=== PATIENT | male | born 1975 | race Two or more races ===

== ENCOUNTER 2017-01-31 03:10 | Emergency (ER) | payer MEDICAID ==
[~2017-01-31] VITALS: Ht 170.2 cm; Wt 65.8 kg
[~2017-01-31 03:10] MED LIST: DIPHENHYDRAMINE25 M1 ORAL; PREDNISONE20 MG ORAL; ZANTAC150 MG ORAL
[2017-01-31] MEDS ORDERED: Solu-MEDROL 125mg Inj IM ONE (03:30)
[2017-01-31] MEDS ORDERED: BENADRYL25 MG ORAL (04:14)
[2017-01-31] MEDS ORDERED: PREDNISONE20 MG ORAL (04:14)
[2017-01-31] MEDS ORDERED: RANITIDINE HCL150 MG ORAL (04:14)
[2017-01-31 04:32] VITALS: BP 127/76
--- NOTE | 2017-02-02 07:35 | Emergency Room Report ---
History of Present Illness General Chief Complaint: Allergic Reaction Source: Patient Present Illness HPI Patient present with complaints of possible reaction to oysters He had was his earlier in the day Patient has no feeling itching and rash to the upper extremity and chest area Denies any shortness of breath Denies any chest pain Denies any vomiting or diarrhea Allergies: Uncoded Allergies: OYSTERS (Allergy, Unknown, 12/20/15) Patient History Past Medical History: see triage record Pertinent Family History: none Reviewed Nursing Documentation: PMH: Agreed, PSxH: Agreed Nursing Documentation-PMH Past Medical History: No Stated History Review of Systems All Other Systems: negative except mentioned in HPI Physical Exam Vital Signs Date Time Temp Pulse Resp B/P (MAP) Pulse Ox O2 Delivery O2 Flow Rate FiO2 01/31/17 03:17 97.5 58 18 127/76 98 Room Air Sp02 EP Interpretation: reviewed, normal General Appearance: well appearing, no apparent distress Head: normocephalic, atraumatic Eyes: bilateral eye PERRL, bilateral eye EOMI ENT: hearing grossly normal, normal pharynx, TMs + canals normal, uvula midline Neck: full range of motion, supple, no meningismus, no bony tend Respiratory: lungs clear, normal breath sounds, no rhonchi, no respiratory distress, no retraction, no accessory muscle use Cardiovascular #1: normal peripheral pulses, regular rate, rhythm, no edema, no gallop, no JVD, no murmur Gastrointestinal: normal bowel sounds, non tender, soft, no mass, no organomegaly, non-distended, no guarding, no hernia, no pulsatile mass, no rebound Genitourinary: no CVA tenderness Musculoskeletal: normal inspection Neurologic: oriented x3, responsive, filler mixer III-XII nml as tested, motor strength/ tone normal, sensory intact Psychiatric: mood/affect normal Skin: other - Mild erythematous rash in the upper extremities some in the upper chest no obvious petechiae, Lymphatic: normal inspection, no adenopathy Medical Decision Making Diagnostic Impression: Primary Impression: Allergic reaction ER Course Patient had taken 50 mg of Benadryl already therefore was provided with steroids and Zantac observed and has done significantly better No signs of any upper airway pathology patient was stable for close followup Last Vital Signs Date Time Temp Pulse Resp B/P (MAP) Pulse Ox O2 Delivery O2 Flow Rate FiO2 01/31/17 04:32 97.5 65 18 127/76 98 Room Air Status: improved Disposition: HOME, SELF-CARE Condition: Improved Scripts Ranitidine Hcl* (ZANTAC*) 150 Mg Tablet 150 MG ORAL TWICE A DAY, #30 TAB Prov: PAVEL SILVA D.O. 01/31/17 Prednisone* (PREDNISONE*) 20 Mg Tablet 20 MG ORAL BID, #8 TAB Prov: PAVEL SILVA D.O. 01/31/17 Diphenhydramine Hcl* (BENADRYL*) 25 Mg Capsule 25 MG ORAL Q6H Y for Itching for 7 Days, CAP Prov: PAVEL SILVA D.O. 01/31/17 Referrals: [facility]ERR[facility] (PCP) Patient Instructions: Food Allergy, [id number] Additional Instructions: Patient is provided with the discharge instructions notified to follow up with primary doctor in the next 2-3 days otherwise return to the er with any worsening symptoms. Please note that this report is being documented using [employer] technology. This can lead to erroneous entry secondary to incorrect interpretation by the dictating instrument. PAVEL SILVA D.O. Feb 02, 2017 07:35
== END 2017-01-31 04:33 | disposition home or self-care (01) ==
LOC: EMR 03:36
DX: T78.40XA Allergy, unspecified, initial encounter (principal); X58.XXXA Exposure to other specified factors, initial encounter; Z91.013 Allergy to seafood
CPT/HCPCS: 96372; 99283; J2930

== ENCOUNTER 2017-07-05 06:04 | Emergency (ER) | payer MEDICAID ==
[~2017-07-05] VITALS: Ht 162.6 cm; Wt 54.4 kg
[~2017-07-05 06:04] MED LIST changes: +BENADRYL25 MG ORAL; +RANITIDINE HCL150 MG ORAL
[2017-07-05 06:15] VITALS: BP 122/81
[2017-07-05] MEDS ORDERED: PREDNISONE20 MG ORAL (06:24)
[2017-07-05] MEDS ORDERED: ALBUTEROL SULF8.5 GM INH (06:24)
[2017-07-05 06:25] VITALS: BP 120/82
--- NOTE | 2017-07-05 06:25 | Emergency Room Report ---
History of Present Illness General Chief Complaint: Upper Respiratory Illness Source: Patient Present Illness HPI This is a 41-year-old male with no significant past medical history. He presents with chief complaint of a cough for the last 4 days. Also with some congestion and losing his voice. Worse when he lays flat. Worse when he wakes up in the morning. Allergies: Uncoded Allergies: OYSTERS (Allergy, Unknown, 12/20/15) Patient History Past Medical History: see triage record, old chart reviewed Past Surgical History: other Pertinent Family History: none Social History: Denies: smoking Immunizations: other Reviewed Nursing Documentation: PMH: Agreed, PSxH: Agreed Nursing Documentation-PMH Past Medical History: No Stated History Review of Systems Eye: Denies: eye pain, blurred vision ENT: Reports: nose congestion, Denies: ear pain, throat swelling Respiratory: Reports: cough, shortness of breath Cardiovascular: Denies: chest pain, palpitations Gastrointestinal: Denies: abdominal pain, diarrhea, nausea, vomiting Musculoskeletal: Denies: back pain, joint pain Skin: Denies: rash Neurological: Denies: headache, numbness Endocrine: Denies: increased thirst, increased urine Hematologic/Lymphatic: Denies: easy bruising All Other Systems: negative except mentioned in HPI Physical Exam Vital Signs Date Time Temp Pulse Resp B/P (MAP) Pulse Ox O2 Delivery O2 Flow Rate FiO2 07/05/17 06:11 99.0 88 18 120/80 98 Room Air 99.0 vitals normal Sp02 EP Interpretation: reviewed, normal General Appearance: well appearing, no apparent distress, alert Head: normocephalic, atraumatic Eyes: bilateral eye PERRL, bilateral eye EOMI ENT: hearing grossly normal, normal pharynx, uvula midline - uvula enlarged Neck: full range of motion, supple, no meningismus Respiratory: chest non-tender, lungs clear, normal breath sounds Cardiovascular #1: regular rate, rhythm, no murmur Gastrointestinal: normal bowel sounds, non tender, no mass, no organomegaly, no bruit, non-distended Musculoskeletal: back normal, gait/station normal, normal range of motion Neurologic: alert, oriented x3 Psychiatric: mood/affect normal Skin: warm/dry Medical Decision Making Diagnostic Impression: Primary Impression: Upper respiratory infection Qualified Codes: J06.9 - Acute upper respiratory infection, unspecified ER Course Patient presents with a viral illness. No evidence of pneumonia, sepsis, meningitis or other bacterial infection. Last Vital Signs Date Time Temp Pulse Resp B/P (MAP) Pulse Ox O2 Delivery O2 Flow Rate FiO2 07/05/17 06:15 98.9 87 17 122/81 99 Room Air 98.9 Status: unchanged Disposition: HOME, SELF-CARE Condition: Stable Scripts Prednisone* (PREDNISONE*) 20 Mg Tablet 60 MG ORAL DAILY, #15 TAB Prov: LEONOR SALCEDO M.D. 07/05/17 Albuterol Sulfate* (ALBUTEROL SULFATE MDI*) 8.5 Gm Hfa.aer.ad 2 PUFF INH Q4H Y for cough/wheezing, #1 EA 0 Refills Prov: LEONOR SALCEDO M.D. 07/05/17 Patient Instructions: Upper Respiratory Infection, Adult Additional Instructions: Follow-up with your doctor in 7 days. Return if symptom worsen. Increase fluid. LEONOR SALCEDO M.D. Jul 05, 2017 06:25
== END 2017-07-05 06:30 | disposition home or self-care (01) ==
LOC: EMR 06:15
DX: J06.9 Acute upper respiratory infection, unspecified (principal); Z91.018 Allergy to other foods
CPT/HCPCS: 99284

== ENCOUNTER 2017-11-03 14:17 | Emergency (ER) | payer MEDICAID ==
[~2017-11-03] VITALS: Ht 167.6 cm; Wt 68.0 kg
[~2017-11-03 14:17] MED LIST changes: +ALBUTEROL SULF8.5 GM INH
--- NOTE | 2017-11-03 15:05 | Emergency Room Report ---
History of Present Illness General Chief Complaint: Lower Extremity Injury Source: Patient Present Illness HPI Patient is a 42-year-old male who presents today with left calf pain that began while playing basketball earlier today. Patient states that 3 weeks ago he injured his left calf in the same way and took 2 weeks off. He states he just started playing again when he stepped the wrong way and had a sudden bout of pain in the left calf. He states he has minimal pain at rest and 5 out of 10 pain with movement. No medication has been taken. He denies any numbness, tingling, loss of sensation or associated symptoms. Allergies: Uncoded Allergies: OYSTERS (Allergy, Unknown, 12/20/15) Patient History Reviewed Nursing Documentation: PMH: Agreed; PSxH: Agreed Nursing Documentation-PMH Past Medical History: No Stated History Review of Systems Musculoskeletal: Reports: muscle pain All Other Systems: negative except mentioned in HPI Physical Exam Vital Signs Date Time Temp Pulse Resp B/P (MAP) Pulse Ox O2 Delivery O2 Flow Rate FiO2 11/03/17 14:34 98.6 65 19 137/82 98 98.6 Sp02 EP Interpretation: reviewed, normal General Appearance: no apparent distress, alert, GCS 15, non-toxic Head: normocephalic, atraumatic Eyes: bilateral eye normal inspection, bilateral eye PERRL ENT: hearing grossly normal, normal pharynx, no angioedema, normal voice Neck: full range of motion, supple/symm/no masses Respiratory: chest non-tender, lungs clear, normal breath sounds, speaking full sentences Cardiovascular #1: regular rate, rhythm, no edema Cardiovascular #2: 2+ carotid (R), 2+ carotid (L), 2+ radial (R), 2+ radial (L) , 2+ dorsalis pedis (R), 2+ dorsalis pedis (L) Gastrointestinal: normal bowel sounds, non tender, soft, non-distended, no guarding, no rebound Rectal: deferred Genitourinary: normal inspection, no CVA tenderness Musculoskeletal: back normal, gait/station normal, normal range of motion, non- tender, other - point tenderness to the distal aspect of the gastrocnemius, pain is exacerbated with dorsiflexion and plantar flexion at the left foot Neurologic: alert, oriented x3, responsive, motor strength/tone normal, sensory intact, speech normal Psychiatric: judgement/insight normal, memory normal, mood/affect normal, no suicidal/homicidal ideation Reflexes: 3+ bicep (R), 3+ bicep (L), 3+ tricep (R), 3+ tricep (L), 3+ knee (R) , 3+ knee (L) Skin: normal color, no rash, warm/dry, well hydrated Lymphatic: no adenopathy Medical Decision Making PA Attestation My supervising physician Dr. Barnes Diagnostic Impression: Primary Impression: Left leg pain ER Course Patient has point tenderness over the inferior gastrocnemius. X-rays within normal limits. Patient is placed in a short-leg posterior splint, neurovascularly intact before and after splint is placed. He is also given crutches. He is instructed to follow-up with orthopedics as he may have a mild muscle tear. He is given a prescription for [place]. [facility]'s pain medication in the ED. Given return precautions. Patient understands plan and is agreeable. Other X-Ray Diagnostic Results Other X-Ray Diagnostic Results : # of Views/Limited Vs Complete: 3 View Indication: Pain EP Interpretation: Yes PA Xray: Interpretation reviewed, by supervising MD, and agrees with findings. Interpretation: no dislocation, no soft tissue swelling, no fractures Impression: No acute disease Electronically Signed by: maxine whitt PA-C Last Vital Signs Date Time Temp Pulse Resp B/P (MAP) Pulse Ox O2 Delivery O2 Flow Rate FiO2 11/03/17 14:34 98.6 65 19 137/82 98 98.6 Status: improved Disposition: HOME, SELF-CARE Condition: Stable Scripts Hydrocodone Bit/Acetaminophen 5-325* (NORCO 5-325*) 1 Each Tablet 1 TAB ORAL Q4H PRN for For Pain, #15 TAB 0 Refills Prov: Maxine Whitt 11/03/17 Patient Instructions: Acute Ankle Sprain With Phase I Rehab[facility] Maxine Whitt Nov 03, 2017 15:05
[2017-11-03] MEDS ORDERED: NORCO 5-325 TA1 EACH ORAL (16:01)
--- NOTE | 2017-11-03 16:01 | Diagnostic Imaging Report ---
Indication: Pain Technique: 2 views of the left tibia and fibula Comparison: None Findings: No acute fractures. No dislocations. No radiopaque foreign body Impression: Negative
[2017-11-03 16:20] VITALS: BP 135/80
== END 2017-11-03 16:20 | disposition home or self-care (01) ==
LOC: EMR 15:12
DX: M79.605 Pain in left leg (principal); Z91.013 Allergy to seafood
CPT/HCPCS: 99283